=== PATIENT | male | born 1965 | race Caucasian/White ===

== ENCOUNTER 2022-04-12 09:44 | Emergency (ER) | payer SELFPAY ==
[2022-04-12 09:55] VITALS: BP 135/81; PULSE 78; RESP 16; TEMP 37.2; O2SAT 97
--- NOTE | 2022-04-12 10:00 | ED.BACK ---
HPI - Back Pain/Injury General Chief Complaint: Back Pain/Injury Stated Complaint: lower back pain Time Seen by Provider: 04/12/22 10:01 Source: patient Mode of arrival: ambulatory Limitations: no limitations History of Present Illness HPI Narrative: 57-year-old male presents with complaint of right-sided low back pain for 4-5 days. Started after lifting heavy hunting bag. States he then had to fly to [place] for work and the pain was worse. Saw a chiropractor while down there and got an adjustment but pain not improving. States last night he soaked and bathtub with Epsom salts and somewhat better. Ambulatory with steady gait. No loss of bowel or bladder. No history of back injury. All systems reviewed and negative except as noted above. Related Data Home Medications Medication Instructions Recorded Confirmed amlodipine 5 mg tablet 5 mg PO DAILY 04/12/22 04/12/22 atorvastatin 10 mg tablet 10 mg PO DAILY 04/12/22 04/12/22 lisinopril 20 20 tablet PO DAILY 04/12/22 04/12/22 mg-hydrochlorothiazide 25 mg tablet pioglitazone 30 mg tablet 30 mg PO DAILY 04/12/22 04/12/22 sildenafil 100 mg tablet 100 mg PO PRN PRN Sexual Activity 04/12/22 04/12/22 Allergies Allergy/AdvReac Type Severity Reaction Status Date / Time No Known Allergies Allergy Verified 04/12/22 10:02 Review of Systems Review of Systems: CONSTITUTIONAL: Denies fever, chills, or sweats. EYES: Denies visual changes, redness, or discharge. ENT: Denies rhinorrhea, congestion, sore throat, or otalgia. CARDIOVASCULAR: Denies chest pain, palpitations, or edema. RESPIRATORY: Denies cough or dyspnea. GASTROINTESTINAL: Denies abdominal pain, nausea, vomiting, or diarrhea. GENITOURINARY: Denies dysuria or hematuria. SKIN: Denies rash or itching. MUSCULOSKELETAL: Reports right-sided low back pain. NEUROLOGIC: Denies headache, numbness, or weakness. PSYCHIATRIC: Denies anxiety or depression. All other systems reviewed are negative, except as documented in HPI. PMFSH Comments At time of signature, agree with nursing past medical, surgical, social and family history. There is no relevant family history pertinent to the presenting complaint. Exam Narrative: GENERAL: This is a well-nourished, well-developed patient, in no apparent distress. HEAD: normocephalic, atraumatic. EYES: PERRL. Sclera clear/white. Vision is grossly intact. EARS: External ears normal NOSE: External nose normal NECK: Neck supple, non-tender without lymphadenopathy, masses or thyromegaly. CARDIOVASCULAR: Regular rate and rhythm without murmurs, gallops, or rubs. RESPIRATORY: Clear to auscultation. Breath sounds equal bilaterally. No wheezes, rales, or rhonchi. SKIN: warm, Dry, intact with no suspicious lesions or rash, good texture and turgor. NEURO: awake, alert, and oriented to person, place and time. There were no obvious focal neurologic abnormalities. EXTREMITIES: No joint tenderness, effusion, or edema noted. MUSCULOSKELETAL: No midline tenderness. Muscular tenderness on palpation to right low back. No CVA tenderness. Bilateral lower extremity strength 5 out 5. Negative straight leg raise. Course Course Level of Care: Express Care Visit Vital Signs Vital signs: Vital Signs Temperature 37.2 C 04/12/22 09:55 Pulse Rate 78 04/12/22 09:55 Respiratory Rate 16 04/12/22 09:55 Blood Pressure 135/81 04/12/22 09:55 Pulse Oximetry 97 04/12/22 09:55 Temperature 37.2 C 04/12/22 09:55 Pulse Rate 78 04/12/22 09:55 Respiratory Rate 16 04/12/22 09:55 Blood Pressure 135/81 04/12/22 09:55 Pulse Oximetry 97 04/12/22 09:55 Reviewed MDM - Back Pain/Injury MDM Narrative Medical decision making narrative: Patient is aware of diagnosis, understands and agrees to treatment plan. Anticipatory guidance given. Patient agrees to follow-up as directed and is aware of reasons to seek care at the emergency department. Portions of this record may have been cre
== END 2022-04-12 10:26 | disposition home or self-care (01) ==
PROVIDERS: Emergency Provider Nurse Practitioner Family
DX: S39.012A Strain of muscle, fascia and tendon of lower back, initial encounter (principal); X50.0XXA Overexertion from strenuous movement or load, initial encounter; E78.00 Pure hypercholesterolemia, unspecified; I10 Essential (primary) hypertension
CPT/HCPCS: 99213; G0463